=== PATIENT | female | born 1985 | race Caucasian/White ===

== ENCOUNTER 2016-11-09 17:30 | Inpatient (IN) | payer BC, SELFPAY ==
[~2016-11-09] VITALS: Ht 170.2 cm; Wt 120.2 kg
--- NOTE | ~2016-11-09 | OR ---
PATIENT'S NAME: ELPIDIO ARCEO [facility] AGE: 31 Y [address] ROOM: [place] [address] LOCATION: [facility] [place] ADMIT DATE: 11/09/2016 OR/Procedure Report DISCHARGE DATE: FAMILY PHYSICIAN: Jadyn Pollock MD ATTENDING PHYSICIAN: CORTEZ NELSON V SURGEON: Jason Crow MD EMT BASIC: DATE OF PROCEDURE: 11/11/2016 PREOPERATIVE DIAGNOSIS: Cholelithiasis with choledocholithiasis, status post ERCP. POSTOPERATIVE DIAGNOSIS: Cholelithiasis with choledocholithiasis, status post ERCP. PROCEDURE PERFORMED: Laparoscopic cholecystectomy. FINDINGS: The gallbladder was thickened and edematous. No stones were present. ESTIMATED BLOOD LOSS: 20 mL. COMPLICATIONS: None. INDICATIONS: The patient is a 31-year-old female who had presented with elevated bilirubin and gallstones consistent with choledocholithiasis. She had undergone ERCP and has been consulted for cholecystectomy. We discussed cholecystectomy with the patient; the risks, benefits, and alternatives, and she elected to proceed. DESCRIPTION OF PROCEDURE: The patient was taken into the operating room. She was supine, given IV sedation, and subsequently intubated. Her abdomen was prepped with ChloraPrep and sterilely draped. Local anesthetic was infiltrated just superior to the umbilicus. A transverse incision was created. The abdomen was elevated. A Veress needle was inserted. Pneumoperitoneum was induced. Following this, a 5 mm trocar was inserted followed by insertion of the camera. There was no injury from initial trocar placement. Three more trocars were then positioned; an 11 mm epigastric, and two 5 mm right subcostal ports. Skin overlying the peritoneum was first anesthetized prior to making these incisions. All 3 trocars were inserted under direct visualization. The gallbladder was noted to be thickened and edematous. It was grasped and elevated over the dome of the liver. The infundibulum was grasped and retracted inferiorly and laterally to expose the Calot triangle. The cystic duct and artery were then dissected around circumferentially. A critical window was able to be obtained. Both of these PATIENT'S NAME: ELPIDIO ARCEO [facility] AGE: 31 Y [address] ROOM: [place] [address] LOCATION: [facility] [place] ADMIT DATE: 11/09/2016 OR/Procedure Report DISCHARGE DATE: FAMILY PHYSICIAN: Jadyn Pollock MD ATTENDING PHYSICIAN: CORTEZ NELSON V structures were then doubly clipped and divided. The gallbladder was then removed from the liver bed using electrocautery. This was placed in an EndoCatch bag and brought out through the epigastric port site. The liver bed was then inspected. It appeared hemostatic. Clips appeared to be in good position on both the cystic duct and artery. The area was irrigated. The fluid was removed. The pneumoperitoneum was released. The trocars were removed. The trocar sites appeared hemostatic. The fascia of the epigastric port site was approximated with 0 Vicryl suture followed by skin closure of all 4 port sites with 4-0 Monocryl sutures. Steri-Strips and sterile dressings were placed. The patient was extubated and sent to Recovery in good condition. MD ARASH KWONO/modl /[id number] d: 11/11/16 1223 t: 11/12/16 1506, OPERATIVE SUMMARY
--- NOTE | ~2016-11-09 | DS ---
PATIENT'S NAME: ELPIDIO ARCEO [facility] AGE: 31 Y [address] ROOM: [address] [address] [place] [facility] [place]MIT DATE: 11/09/2016 Discharge Summary DISCHARGE DATE: 11/12/2016 FAMILY PHYSICIAN: Jadyn Pollock MD ATTENDING PHYSICIAN: Tiburcio David V PRIMARY DIAGNOSES: 1. Choledocholithiasis. 2. Cholelithiasis. 3. Leukocytosis. 4. Morbid obesity. PRINCIPAL PROCEDURE DONE FOR THE PATIENT: Includes ERCP and sphincterotomy and stent placement by Dr. Schroeder; also, lap kelly by Dr. Crow. LABORATORY DATA: On admission, WBC 2 days post ERCP was 12.8, prior to discharge was 15.1, H and H on admission was 13.2/39.2, prior to discharge was 12.9/37.9, platelet was stable at 310. Sodium on admission was 145, stable throughout hospital stay, potassium was 3.7, prior to discharge was 3.5, creatinine on admission was 0.6, was stable throughout the hospital stay. Liver function tests 2 days post ERCP was AST was 75, prior to discharge was 51, ALT was 455, prior to discharge was 325, alk phos was 187, prior to discharge was 145, albumin was 2.9, total bili on admission 2 days post ERCP was 2.0, prior to discharge was 1.9, phosphorus was 1.9, was repleted, prior to discharge was 2.9. Lipase was 396, amylase was 44. HOSPITAL COURSE: For history of present illness, please take a look at the H and P, which was done by Dr. David. The patient was admitted to Medical/Surgical Unit with a diagnosis of choledocholithiasis who had a club licensee consult and by the next day of the hospital stay the patient was evaluated by GI team who subsequently took the patient in for an ERCP with a sphincterotomy with stent placement. Procedure was well-tolerated by the patient without any intraoperative or postop complications. The same day, the patient had a General Surgery consult for a lap kelly, which was done on the second day of the hospital stay. Procedure was well-tolerated by the patient also without intraop or postop complication. However, by the second day postop following the lap kelly, the patient had developed a bump in the white blood cell count and given the multiple abdominal procedures, which was done, the patient was empirically started on IV Cipro and IV Flagyl on the second day of the hospital stay. On the 3rd day of the hospital stay, the patient felt better, had no complaint, was ambulating on the hallway, tolerated her diet well without nausea, vomiting, or abdominal pain and vital signs were stable and she was discharged home. However, the repeat white cell count that I got on the day of discharge showed even an increase in white cell count to 15.1 and she was discharged home on Cipro and Flagyl p.o. for an PATIENT'S NAME: ELPIDIO ARCEO [facility] AGE: 31 Y [address] ROOM: [address] [address] [place]: [facility] [place]MIT DATE: 11/09/2016 Discharge Summary DISCHARGE DATE: 11/12/2016 FAMILY PHYSICIAN: Jadyn Pollock MD ATTENDING PHYSICIAN: Tiburcio David V additional 5 days. DISCHARGE INSTRUCTIONS: She is to follow up with Dr. Crow in the next 7-10 days and also the patient is to also follow up with GI for the ERCP and stent removal on December 02 and the patient is to visit with her PCP in the next 2-3 days who is to repeat the CBC. MEDICATIONS ON DISCHARGE: Includes: 1. Zyrtec 10 mg p.o. daily p.r.n. 2. Albuterol 2 puffs inhalation 4 times daily p.r.n. 3. Fluticasone 2 puffs inhalation everyday. 4. Ibuprofen 600-800 mg orally q.6 h. with meal. 5. Tylenol 500 mg every 6 hours p.r.n. 6. Cipro 250 mg twice daily for 5 days, new medication. 7. Flagyl 500 mg 3 times daily p.o. new medication for 5 days. 8. Florastor 250 mg orally twice daily for 5 days, new medication. 9. Hydrocodone and acetaminophen 1-2 tablets orally every 4 hours as needed 5/325 mg tablets p.o. p.r.n. 10. Zofran 1 tablet orally every 4 hours p.o. p.r.n. MD TONIE PUCKETT/jennifer /[id number] d: 11/13/16 0014 t: 11/14/16 1352, DISCHARGE SUMMARY
--- NOTE | ~2016-11-09 | CON ---
PATIENT'S NAME: ELPIDIO ARCEO [facility] AGE: 31 Y [address] ROOM: [place] [address] [place] [facility] [place]: 11/09/2016 Consultation DISCHARGE DATE: FAMILY PHYSICIAN: Jadyn Pollock MD ATTENDING PHYSICIAN: CORTEZ NELSON V DATE OF CONSULTATION: 11/10/2016 REFERRING PHYSICIAN: STEPHANI SAHNI MD GASTROENTEROLOGY INPATIENT HOSPITAL CONSULTATION REASON FOR CONSULTATION: Suspected choledocholithiasis and dilated bile ducts. HISTORY OF PRESENT ILLNESS: This is a very pleasant 31-year-old female, who was admitted after being transferred from [place] with abdominal pain for the past 3 days. On evaluation at the outside facility, she had demonstrated transaminitis as well as ultrasound showing cholecystitis and a dilated common bile duct. The patient was transferred to [facility] for definitive workup. The patient was seen and examined. She does complain of generalized abdominal discomfort for the past few days that has intensified with oral intake. She denies any nausea, vomiting, shortness of breath, chest pain, chest pressure, or palpitations. All outside facility records were reviewed with the patient as well. The patient denies any previous history of issues with abdominal pain. PAST MEDICAL HISTORY: Asthma. PAST SURGICAL HISTORY: 1. History of childbirth. 2. No history of upper endoscopy or colonoscopy. PAST SOCIAL HISTORY: History of tobacco use. Denies any alcohol or illicit drug use. FAMILY HISTORY: The patient's mother had cervical cancer. ALLERGIES: CODEINE, TREE NUTS, AND MANGOES. CURRENT MEDICATIONS: PATIENT'S NAME: ELPIDIO ARCEO [facility] AGE: 31 Y [address] ROOM: [place] [address] [place] [facility] [place]: 11/09/2016 Consultation DISCHARGE DATE: FAMILY PHYSICIAN: Jadyn Pollock MD ATTENDING PHYSICIAN: CORTEZ NELSON V Please refer to the medication administration record. REVIEW OF SYSTEMS: A 10-point review of systems was completed. All were negative except for those identified in the history of present illness. PHYSICAL EXAMINATION: GENERAL: A very pleasant, 31-year-old female, who appears to be in no acute distress. VITAL SIGNS: Temperature 98.1, pulse of 62, respirations of 19, blood pressure 124/62, and oxygen saturations 94% on room air. SKIN: [place], warm, and dry. No jaundice. HEENT: Head is normocephalic and atraumatic. Pupils are equal, round, and reactive to light. Sclerae are clear. Nonicteric. Oral mucosa is pink and moist. No thyromegaly. NECK: Soft and supple. CARDIOVASCULAR: Regular. Normal S1 and S2. RESPIRATORY: Respirations are even and unlabored. LUNGS: Clear to auscultation. ABDOMEN: Soft, round, and generalized tenderness throughout. Bowel sounds positive x4 quadrants. MUSCULOSKELETAL: No muscle weakness or atrophy. EXTREMITIES: No clubbing, cyanosis, or edema. NEUROLOGICAL: Grossly nonfocal. LABORATORY DATA AND IMAGING STUDIES: Labs and Diagnostics: Laboratory was reviewed from the outside facility showing an elevated AST of 548, ALT of 937, alkaline phosphatase of 215, and total bilirubin of 5.6. Sodium 143, potassium of 3.6, chloride of 106, CO2 of 24, glucose of 119, BUN of 10, and creatinine 0.6. White blood cell count 10.8, hemoglobin of 15.1, hematocrit of 42.0, and platelets of 332,000. Amylase was 45, lipase was 78. Imaging completed at the outside facility did show the gallbladder was positive for gallstones, and common bile duct was dilated at 7 mm. ASSESSMENT AND PLAN: Again this is a very pleasant 31-year-old female, who was admitted with acute abdominal pain and found to have cholelithiasis as well as suspected choledocholithiasis. The patient's bilirubin level was elevated at 5.7, as well as AST and ALT elevated. Common bile duct was also mildly dilated, noted on imaging at the outside facility at 7 mm. At this time, it is recommended for the patient to undergo an endoscopic retrograde cholangiopancreatography for suspected choledocholithiasis. The risks, benefits, and alternatives including bleeding, pancreatitis, perforation, and surgery were all discussed with the patient per Dr. Stephani Sahni. Further recommendations will be PATIENT'S NAME: ELPIDIO ARCEO [facility] AGE: 31 Y [address] ROOM: [place] [address] [place] [facility] [place] DATE: 11/09/2016 Consultation DISCHARGE DATE: FAMILY PHYSICIAN: Jadyn Pollock MD ATTENDING PHYSICIAN: CORTEZ NELSON V given status post endoscopic retrograde cholangiopancreatography. Thank you for this consult and allowing us to participate in the care of this patient. We will continue to monitor, evaluate, and treat as appropriate. EDUARDO VEGA APRN FOR MD BRANDON GORDON/modl /[id number] d: 11/12/16 1244 t: 12/02/16 0735, CONSULTATION REPORT
--- NOTE | ~2016-11-09 | CON ---
PATIENT'S NAME: ISABELLE ARCEO [facility] AGE: 31 Y [address] ROOM: [place] [address] [place] [facility] [place]: 11/09/2016 Consultation DISCHARGE DATE: FAMILY PHYSICIAN: Jadyn Pollock MD ATTENDING PHYSICIAN: CORTEZ NELSON V REFERRING PHYSICIAN: STEPHANI SAHNI MD CHIEF COMPLAINT: Abdominal pain. HISTORY OF PRESENT ILLNESS: The patient is a 31-year-old female who said that she had been in her normal state of health; however, on Tuesday said she was shopping in the mall and felt a little bit of discomfort in her right side, thought maybe this was just from walking around and carrying a purse; however, on Tuesday this got worse. She had nausea and vomiting. Described pain in the right upper quadrant. This was extremely severe on Tuesday, went to the urgent care, was given pain medications, was set up to have a gallbladder ultrasound performed; however, her pain got worse, ended up in the emergency room in [place] where she was evaluated and was found to have elevated liver function tests as well as cholelithiasis and was sent here for ERCP and cholecystectomy. The patient did have ERCP today, which was performed. A stent was also placed. Currently, she is feeling good. She is not nauseated, but has not eaten. CURRENT MEDICATIONS: 1. Flovent. 2. Angela. PAST SURGICAL HISTORY: None. PAST MEDICAL HISTORY: Asthma. SOCIAL HISTORY: She is a nonsmoker. REVIEW OF SYSTEMS: She denies any headache or vision changes. No chest pain or shortness of breath. No melena. No hematochezia. No hematuria or dysuria. Further review of systems was negative. PHYSICAL EXAMINATION: GENERAL: She is an overweight 31-year-old female, in no acute distress. HEENT: Head is normocephalic, atraumatic. Her eyes are anicteric. NECK: Without lymphadenopathy. PATIENT'S NAME: ISABELLE ARCEO [facility] AGE: 31 Y [address] ROOM: [place] [address] [place] [facility] [place]: 11/09/2016 Consultation DISCHARGE DATE: FAMILY PHYSICIAN: Jadyn Pollock MD ATTENDING PHYSICIAN: CORTEZ NELSON V HEART: Regular rate and rhythm. No murmurs audible. LUNGS: Clear to auscultation bilaterally. ABDOMEN: Soft. It is mildly tender to palpation in the right upper quadrant. No rebound or guarding is present. Bowel sounds are active. EXTREMITIES: Warm. No edema. NEUROLOGIC: Gross motor is intact. ASSESSMENT: Cholelithiasis, status post endoscopic retrograde cholangiopancreatography. PLAN: At this point in time, I discussed the findings with Isabelle. We would recommend cholecystectomy. We discussed risks of surgery, which include, but are not limited to, bleeding, infection, bile leak, bile duct injury, injury to other viscera. She understands the risks and would like to proceed. We will schedule her for laparoscopic cholecystectomy in the morning. MD FAHEEM KWON/jenniel /[id number] d: 11/10/16 2332 t: 11/12/16 1503, CONSULTATION REPORT
--- NOTE | ~2016-11-09 | HP ---
PATIENT'S NAME: ELPIDIO ARCEO [facility] AGE: 31 Y [address] ROOM: [place] [id number] LOCATION: [facility] [place] ADMIT DATE: 11/09/2016 History & Physical DISCHARGE DATE: FAMILY PHYSICIAN: PHYSICIAN, UNKNOWN ATTENDING PHYSICIAN: CORTEZ NELSON V DATE OF SERVICE: CHIEF COMPLAINT: Abdominal pain. HISTORY OF PRESENT ILLNESS: The patient is a previously healthy 31-year-old female who has been experiencing abdominal pain in the course of last 3 days. She had an evaluation in [place], which demonstrated transaminitis and an ultrasound showing cholecystitis and a dilated common bile duct. She was transferred to [facility] for an ERCP/cholecystectomy. At this point, the patient reports that her pain is well-controlled with the Toradol that she received at an outside facility. She denies any nausea, vomiting, shortness of breath, chest pain, palpitations, or syncope associated with the symptoms. REVIEW OF SYSTEMS: All systems have been reviewed and are negative aside from pertinent positives as mentioned above. PAST MEDICAL HISTORY: Significant for asthma, currently on p.r.n. inhalers. PAST SURGICAL HISTORY: Significant for childbirth. CURRENT MEDICATIONS: 1. Flovent. 2. Angela. FAMILY HISTORY: Significant for cervical cancer in her mother. SOCIAL HISTORY: Significant for a distant, but no longer active history of tobacco use. PHYSICAL EXAMINATION: VITAL SIGNS: Stable. PATIENT'S NAME: ELPIDIO ARCEO [facility] AGE: 31 Y [address] ROOM: [address] [address] LOCATION: [facility] [place] ADMIT DATE: 11/09/2016 History & Physical DISCHARGE DATE: FAMILY PHYSICIAN: PHYSICIAN, UNKNOWN ATTENDING PHYSICIAN: CORTEZ NELSON V GENERAL: Appears as a well-developed, obese, young female, in no acute distress. NEUROLOGICAL: Exam is nonfocal. EYES: Exam shows pupils are equal and reactive to light. LYMPHATIC: Exam shows no cervical lymphadenopathy. ENDOCRINE: Exam shows no thyromegaly. LUNGS: Clear to auscultation. HEART: Rate is regular. ABDOMEN: Soft, slightly tender in the right upper quadrant. Normoactive bowel sounds. : Exam reveals no costovertebral angle tenderness. VASCULAR: Exam reveals 2+ pedal pulses. MUSCULOSKELETAL: Exam is unremarkable. NEUROLOGIC: Exam shows nonfocal. SKIN: Warm and dry. PSYCHIATRIC: Reveals a very pleasant, young woman with a preserved mood, cognition, and affect. LABORATORY DATA: Studies from the outside facility are significant for abdominal ultrasound as described in the HPI and lab results showing AST of 548, ALT 937, alk phos is 215, and bilirubin of 5.6. White count is 10.8, no bands. ASSESSMENT AND PLAN: This is a 31-year-old female with: 1. Choledocholithiasis/cholecystitis. She will be admitted to the Medical/Surgical floor. We will put her on a diet for now and make her n.p.o. after midnight. We will provide her with symptomatic support. Dr. Schroeder of Gastroenterology is aware of the patient and at this point, an ERCP is planned in the morning. Subsequent management will depend on the outcome of the ERCP. 2. Asthma. We will continue the patient on her inhalers. 3. Deep venous thrombosis prophylaxis will be instituted if the patient stays in the hospital for more than 48 hours. Additional management will depend on clinical course. Time dedicated to this patient encounter is 25 minutes. MD JIM MONTALVO/jennifer PATIENT'S NAME: ELPIDIO ARCEO [facility] AGE: 31 Y [address] ROOM: [address] [address] LOCATION: [facility] [place] ADMIT DATE: 11/09/2016 History & Physical DISCHARGE DATE: FAMILY PHYSICIAN: PHYSICIAN, UNKNOWN ATTENDING PHYSICIAN: CORTEZ NELSON V /[id number] D: 342 T: 924 HISTORY & PHYSICAL
[2016-11-09] MEDS ORDERED: PROVENTIL OR V6.7 GM INH (19:15)
[2016-11-09] MEDS ORDERED: ZYRTEC10 MG PO (19:15)
[2016-11-09] MEDS ORDERED: ADVIL200 MG PO (19:16)
[2016-11-09] MEDS ORDERED: FLOVENT 110 M110 MCG INH (19:16)
[2016-11-09] MEDS ORDERED: TYLENOL EXTRA500 MG PO (19:17)
--- NOTE | 2016-11-09 19:33 | NUR ---
patient is 31 yo female admitted this evening from [facility] with cholelithiasis. planning for cholecystectomy tomorrow probably. Dr. David in to see patient. patient had gestational diabetes 3 years ago. has a blood antibody similar to rh factor, however it is not. her son had jaundice and had to be transfused 3-4 times after . saline lock is noted in right forearm without erythema or edema noted at site. Education is given as documented. Advanced directive booklet given with directions per pt request. pneumatics are on. patient denies questions. call light is within reach. report is given to MAXIMINO Peña.
--- NOTE | 2016-11-10 03:53 | NUR ---
SIGNIFICANT EVENT: VSS on RA. Alert & oriented. SBA to BR. Morphine for headache and Zofran for nausea x2 - last at approx 0345, noted relief. ERCP scheduled for today. Void x2 - UA collected for test. PIV to R) FA infusing NS at 75 mL/hr. NPO since MN. Cooperative with cares.
--- NOTE | 2016-11-10 15:21 | NUR ---
1415 Introduced self and CM role to pt while there were several family members in the room. Pt stated that the plan is to remove her gallbladder tomorrow before returning back to her home when medically stable. Pt identified that she felt safe going back home upon discharge and has plenty of support systems. No other needs or concerns at this time. Wrote CM name on markerboard and told her to contact us if any arise. Will continue to follow and provide assistance as needed. CM Youth Manager TH.
--- NOTE | 2016-11-10 18:30 | NUR ---
Significant Event: Patient up ad bert in room. Down for ERCP at 0910 and back at 1130. Did have stent placement. Dr. Crow consulted and plans to remove gall bladder in the a.m. Patient is on clear liquids for now and then NPO after midnight. Does have IV fluids infusing at 100 ml/hour. Follow up: Continue to monitor. NPO after midnight.
--- NOTE | 2016-11-11 05:06 | NUR ---
Significant Event: Patient alert and oriented X4. UP ad bert in room. IV to L) Forearm IV infiltrated. Still trying to get IV access, two nurses tried. Morphine given X1. NPO since midnight. Pre op checklist started and consents signed. Vitals stable and on room air. Follow up: Need IV
[2016-11-11 05:46] LABS: BASOPHIL # 0.1 K/uL (0.0-0.2); BASOPHIL % 0.5 %; EOSINOPHIL # 0.1 K/uL (0.0-0.5); EOSINOPHIL % 0.7 %; HEMATOCRIT 39.2 % (33.0-46.0); HEMOGLOBIN 13.8 g/dL (11.0-15.0); IMMATURE GRANULOCYTE % 0.3 %; LYMPHOCYTE # 3.4 K/uL (0.8-4.0); LYMPHOCYTE % 26.3 %; MCH 31.5 pg (27.0-34.0); MCHC 35.2 gm/dL (32.0-36.5); MCV 89.5 fl (83.0-98.0); MONOCYTE # 0.7 K/uL (0.0-1.0); MONOCYTE % 5.2 %; MPV 9.6 fl (9.4-12.4); NEUTROPHIL # (ANC) 8.6 K/uL (1.8-7.8); NRBC % 0 /100WBC (0-0.00); PLATELET COUNT 310 K/uL (150-450); RBC 4.38 M/uL (3.50-5.50); RDW-CV 11.8 % (11.9-14.6); WBC 12.8 K/uL (4.0-11.0)
[2016-11-11 05:58] LABS: ALK PHOS 187 IU/L (33-138); ANION GAP 10.7 (10.0-19.0); AST 75 IU/L (10-40); BLOOD UREA NITROGEN 8 mg/dL (6-24); CALCIUM 8.2 mg/dL (8.5-10.5); CHLORIDE 110 mMol/L (96-110); CO2 28 mMol/L (22-32); CREATININE 0.6 mg/dL (0.5-1.1); ESTIMATED GFR (MDRD EQUATION) > 60; POTASSIUM 3.7 mMol/L (3.7-5.1); SODIUM 145 mMol/L (135-145); TOTAL PROTEIN 6.1 g/dL (6.0-8.4)
[2016-11-11 06:00] LABS: ALT 455 IU/L (12-78); PHOSPHORUS 1.9 mg/dL (2.5-4.9)
--- NOTE | 2016-11-11 13:53 | NUR ---
Significant Event: Patient down for surgery at 0700 and back to room at 1030. Patient had norco in recovery at 0930 due to thinking she had a reaction with percocet. Patient then spoke to her mother and figured out that she only had problems with percocet because she took it on an empty stomach. Patient asking to try percocet and see if it helps better so patient given 2 percocet at 1342 and results currently pending but patient did eat lunch prior to getting the percocet. Morphine 1 mg and zofran 4 mg given times one at 1242 for complaint of pain at a 7 in her upper abdomen and right shoulder. Explained that this is normal and that time and ambulation will eventually help this. Patient also started on cipro and flagyl and will also tonight get a one time dose of potassium phosphate. Postop vitals will be completed by change of shift. Did miss a few vitals in the middle of the postop vitals due to ambulation and bathroom needs. Follow up: Continue to monitor.
--- NOTE | 2016-11-12 04:22 | NUR ---
Significant Event: ALERT AND ORIENTATED X 4. AMBULATES WITH STANDBY ASSIST. DIET ADVANCE TO REGULAR. HAS 4 LAP PUNCTURE WOUNDS DRESSING CLEAN AND INTACT. IV TO L FA INTERIOR. WALKED X2 THIS SHIFT. SHOULDER PAIN IS BETTER. PERCOCET AND ZOFRAN GIVEN AT 2022. PLANS ARE TO DISMISS IN AM Follow up:
[2016-11-12 06:18] LABS: ALBUMIN 2.9 gm/dL (3.5-5.0); ALK PHOS 149 IU/L (33-138); ANION GAP 11.5 (10.0-19.0); AST 51 IU/L (10-40); BLOOD UREA NITROGEN 7 mg/dL (6-24); CALCIUM 7.9 mg/dL (8.5-10.5); CHLORIDE 109 mMol/L (96-110); CO2 28 mMol/L (22-32); CREATININE 0.6 mg/dL (0.5-1.1); ESTIMATED GFR (MDRD EQUATION) > 60; MAGNESIUM 1.9 mg/dL (1.3-2.6); PHOSPHORUS 2.9 mg/dL (2.5-4.9); POTASSIUM 3.5 mMol/L (3.7-5.1); SODIUM 145 mMol/L (135-145); TOTAL PROTEIN 5.9 g/dL (6.0-8.4)
[2016-11-12 06:20] LABS: ALT 325 IU/L (12-78); TOTAL BILIRUBIN 1.3 mg/dL (0.0-1.5)
[2016-11-12 11:46] LABS: BASOPHIL # 0.1 K/uL (0.0-0.2); BASOPHIL % 0.6 %; EOSINOPHIL # 0.1 K/uL (0.0-0.5); EOSINOPHIL % 0.9 %; HEMATOCRIT 37.9 % (33.0-46.0); HEMOGLOBIN 12.9 g/dL (11.0-15.0); IMMATURE GRANULOCYTE # 0.1 K/uL (0.0-0.3); IMMATURE GRANULOCYTE % 0.4 %; LYMPHOCYTE # 3.9 K/uL (0.8-4.0); MCH 31.5 pg (27.0-34.0); MCV 92.7 fl (83.0-98.0); MONOCYTE # 1.1 K/uL (0.0-1.0); MONOCYTE % 7.1 %; MPV 9.4 fl (9.4-12.4); NEUTROPHIL # (ANC) 9.8 K/uL (1.8-7.8); NRBC % 0 /100WBC (0-0.00); PLATELET COUNT 279 K/uL (150-450); RBC 4.09 M/uL (3.50-5.50); RDW-CV 12.4 % (11.9-14.6); WBC 15.1 K/uL (4.0-11.0)
[2016-11-12] MEDS ORDERED: CIPRO250 MG PO (13:07)
[2016-11-12] MEDS ORDERED: FLAGYL500 MG PO (13:09)
[2016-11-12] MEDS ORDERED: FLORASTOR250 MG PO (13:10)
[2016-11-12] MEDS ORDERED: NORCO 5-325 TA1 EACH PO (13:11)
[2016-11-12] MEDS ORDERED: ZOFRAN4 MG PO (13:12)
--- NOTE | 2016-11-12 13:37 | NUR ---
D:Orders received for patient to be dismissed. I:Dismissal instructions were prepared and reviewed with the patient. The following information was reviewed:diet and activity instructions for home, dressing and incisional care for home, abnormal s/s to report to MD if they occur, home medications, new prescription medications, plans for stent removal on December 06 and that pre-op clinic will call her on November 30 to give her further instructions regarding the procedure, and plans for follow up appointment with Dr. Pollock in [place] next week w/ CBC to be drawn at that appointment. [place] teaching given to and reviewed with the patient on the following topics: Discharge Instructions for Lap Beth, Preventing DVT's, Cipro, Flagyl, Florastor, Logan and Zofran. R:The patient verbalized understanding of the teaching and denied further questions at the time. P:The patient's primary nurse, Cat STANTON, was informed that the patient's dismissal teaching had been completed. The paperwork and prescriptions were going to be taken to patient by the Cydney lai. The patient will be dismissed this afternoon. Shine STANTON
--- NOTE | 2016-11-12 14:47 | NUR ---
Patient educated by virtual nurse on medications, followup appointments, blood clot prevention, postoperative activity and dressing cares. IV discontinued. Vital signs taken. Patient taken by wheelchair with all personal belongings to main lobby for transport home with family friend.
== END 2016-11-12 13:56 | disposition disaster alternative care site (69) | DRG 418 ==
LOC: GMSU 17:30 → EDSTATUS 17:30 → GMSU 18:28
PROVIDERS: Hospitalist; Internal Medicine Gastroenterology; Physician Assistant; ADMIT Internal Medicine
PROC: 0F798DZ Dilation of Common Bile Duct with Intraluminal Device, Via Natural or Artificial Opening Endoscopic (ICD-10-PCS; principal; 2016-11-10)
PROC: 0FT44ZZ Resection of Gallbladder, Percutaneous Endoscopic Approach (ICD-10-PCS; 2016-11-11)
DX: K80.71 Calculus of gallbladder and bile duct without cholecystitis with obstruction (principal); Z68.41 Body mass index [BMI] 40.0-44.9, adult; K80.11 Calculus of gallbladder with chronic cholecystitis with obstruction; J45.909 Unspecified asthma, uncomplicated; E66.01 Morbid (severe) obesity due to excess calories; E87.6 Hypokalemia; E83.39 Other disorders of phosphorus metabolism
CPT/HCPCS: C1769; J0694; J0744; J1100; J1885; J2250; J2270; J2405; J2550; J3010; J7030; J7040; J7050; J7120

== ENCOUNTER → 2016-11-09 | Outpatient (CLI) | payer BC ==
[~2016-11-09] MED LIST: ADVIL200 MG PO; CIPRO250 MG PO; FLAGYL500 MG PO; FLORASTOR250 MG PO; FLOVENT 110 M110 MCG INH; NORCO 5-325 TA1 EACH PO; PROVENTIL OR V6.7 GM INH; TYLENOL EXTRA500 MG PO; ZOFRAN4 MG PO; ZYRTEC10 MG PO
== END | disposition disaster alternative care site (69) ==
LOC: GAMB 15:57
DX: R10.9 Unspecified abdominal pain (principal); K80.20 Calculus of gallbladder without cholecystitis without obstruction; K82.8 Other specified diseases of gallbladder; J45.909 Unspecified asthma, uncomplicated; R10.13 Epigastric pain; R11.2 Nausea with vomiting, unspecified; R51 Headache; Z79.899 Other long term (current) drug therapy; Z88.6 Allergy status to analgesic agent

== ENCOUNTER → 2016-12-03 | Day surgery (SDC) | payer BC, SELFPAY ==
[~2016-12-03] VITALS: Ht 170.2 cm; Wt 119.6 kg
--- NOTE | 2016-12-03 09:12 | NUR ---
[id number] transfers from phase 1 area to [facility] in [facility], report to kait ramos rn
== END | disposition disaster alternative care site (69) ==
LOC: GPOC 11-30 17:00 → GEND 06:48 → GPOC 07:00
PROC: 0FPD8DZ Removal of Intraluminal Device from Pancreatic Duct, Via Natural or Artificial Opening Endoscopic (ICD-10-PCS; principal; 2016-12-03)
DX: K83.8 Other specified diseases of biliary tract (principal); Z46.59 Encounter for fitting and adjustment of other gastrointestinal appliance and device; E66.01 Morbid (severe) obesity due to excess calories; D72.829 Elevated white blood cell count, unspecified; Z87.19 Personal history of other diseases of the digestive system; Z87.891 Personal history of nicotine dependence; J45.909 Unspecified asthma, uncomplicated
CPT/HCPCS: J1100; J2250; J2405; J7030